=== PATIENT | male | born 1945 | race Two or more races ===

== ENCOUNTER 2017-11-20 10:28 | Inpatient (IN) | payer MEDICARE, OTHER ==
[~2017-11-20] VITALS: Ht 167.6 cm; Wt 84.1 kg
[2017-11-20] MEDS ORDERED: ACETAMINOPHEN 500 MG TAB PO ONE (10:45)
[2017-11-20 11:05] LABS: Basophils # (auto) 0.1 uL; Basophils % (auto) 0.9 % (0.0-2.0); Eosinophils # (auto) 0 uL; Eosinophils % (auto) 0.1 % (0.0-7.0); Hematocrit 28.3 % (41.0-53.0); Hemoglobin 9.6 g/dL (13.5-17.5); Lymphocytes # (auto) 0.2 uL; Lymphocytes % (auto) 3.7 % (10.0-50.0); Mean Corpuscular Hemoglobin 33.6 pg (28.0-32.0); Mean Corpuscular Hgb Conc. 33.9 g/dL (32.0-36.0); Mean Corpuscular Volume 99.2 fL (80.0-100.0); Mean Platelet Volume 10.6 fL (6.9-10.8); Monocytes # (auto) 0.8 uL; Monocytes % (auto) 12.6 % (0.0-12.0); Neutrophils % (auto) 82.7 % (37.0-80.0); Platelet Count (auto) 83 10^3/uL (140-450); Red Cell Distribution Width 15.7 % (11.8-14.3); White Blood Cell 6.1 10^3/uL (4.4-10.8)
[2017-11-20 11:22] LABS: Albumin 3.7 g/dL (3.4-5.0); BUN/Creatinine Ratio 3.9; Bilirubin, Total 0.7 mg/dL (0.2-1.0); Calcium 7.7 mg/dL (8.5-10.1); Potassium 4.1 mmol/L (3.5-5.1); Total Protein 8.1 g/dL (6.4-8.2)
[2017-11-20] MEDS ORDERED: SODIUM CHLORIDE 0.9% 1,000 ML IV ONE (13:12)
[2017-11-20 13:40] LABS: INR 0.98 (0.9-1.15); Partial Thromboplastin Time 36.2 sec (22.64-33.71); Prothrombin Time 10.7 sec (9.37-12.3)
[2017-11-20] MEDS ORDERED: AZITHROMYCIN 500MG/ 250ML 250 ML IV ONE ×2 (14:45→17:15)
[2017-11-20] MEDS ORDERED: cefTRIAXone 1GM/10ml IVPUSH 10 ML IV ONE ×2 (14:45→17:15)
[2017-11-20] MEDS ORDERED: MORPHINE SULFATE 4 MG/ML SYRG IV PRN ×2 (17:15)
[2017-11-20] MEDS ORDERED: ONDANSETRON HCL 4 MG/2 ML VIAL IV PRN (17:15)
[2017-11-20] MEDS ORDERED: NITROGLYCERIN 0.4 MG SL TAB SL PRN (17:15)
[2017-11-20] MEDS ORDERED: ACETAMINOPHEN 325 MG TAB PO PRN (17:15)
[2017-11-20] MEDS ORDERED: TEMAZEPAM 15 MG CAP PO PRN (17:15)
[2017-11-20] MEDS ORDERED: HYDROcodone-ACET 5/325MG TAB PO PRN (17:15)
[2017-11-20] MEDS ORDERED: DOCUSATE SOD 100 MG CAP PO PRN (17:15)
[2017-11-20] MEDS: ALBUTEROL SULF 2.5 MG/0.5ML(0.5%) NEB SOLN NEB SCH (18:00)
[2017-11-20] MEDS: IPRATROPIUM BROM 0.5 MG/2.5ML INH SOL NEB SCH (18:00)
[2017-11-20] MEDS ORDERED: NIFE90TA30 PO (18:32)
[2017-11-20] MEDS ORDERED: VALS320T15 PO (18:32)
[2017-11-20] MEDS ORDERED: FER325T PO (18:32)
[2017-11-20] MEDS ORDERED: GABA-497 PO (18:32)
[2017-11-20] MEDS ORDERED: METO25TA5 PO (18:32)
[2017-11-20] MEDS ORDERED: CINA30TA2 PO (18:32)
[2017-11-20] MEDS ORDERED: FERR1TAB17 PO (18:32)
[2017-11-20] MEDS ORDERED: MULT-647 PO (18:35)
[2017-11-20 20:00] VITALS: BP 152/65
[2017-11-20] MEDS: FAMOTIDINE 20 MG TAB PO SCH (20:44)
[2017-11-20] MEDS: METOPROLOL TARTRATE 25 MG TAB PO SCH (21:40)
[2017-11-20] MEDS: SODIUM CHLOR 0.9% PF (SALINE LOCK) 10ML VIAL IV SCH (21:41)
[2017-11-20] MEDS: FERRIC CITRATE 210 MG PO SCH (21:45)
[2017-11-20 22:29] VITALS: BP 152/65
[2017-11-21] MEDS: IPRATROPIUM BROM 0.5 MG/2.5ML INH SOL NEB SCH ×4 (00:10→19:34)
[2017-11-21] MEDS: ALBUTEROL SULF 2.5 MG/0.5ML(0.5%) NEB SOLN NEB SCH ×4 (00:10→19:33)
[2017-11-21 04:01] VITALS: BP 152/65
[2017-11-21 05:13] VITALS: BP 140/72
[2017-11-21] MEDS: SODIUM CHLOR 0.9% PF (SALINE LOCK) 10ML VIAL IV SCH ×3 (06:01→21:40)
[2017-11-21] MEDS: FERRIC CITRATE 210 MG PO SCH ×3 (06:01→21:40)
[2017-11-21 06:17] LABS: Hematocrit 26.8 % (41.0-53.0); Hemoglobin 9.1 g/dL (13.5-17.5); Mean Corpuscular Hemoglobin 33.8 pg (28.0-32.0); Mean Corpuscular Volume 99.5 fL (80.0-100.0); Mean Platelet Volume 10.6 fL (6.9-10.8); Platelet Count (auto) 65 10^3/uL (140-450); Red Cell Distribution Width 15.8 % (11.8-14.3); White Blood Cell 5.2 10^3/uL (4.4-10.8)
[2017-11-21 06:39] LABS: Albumin 3.2 g/dL (3.4-5.0); Calcium 8.2 mg/dL (8.5-10.1); Potassium 4.9 mmol/L (3.5-5.1)
[2017-11-21 06:41] LABS: BUN/Creatinine Ratio 4.7
[2017-11-21 06:44] LABS: Bilirubin, Total 0.5 mg/dL (0.2-1.0); Total Protein 7.3 g/dL (6.4-8.2)
[2017-11-21 06:51] LABS: Metamyelocytes % 0; Myelocytes % 0; Promyelocytes % 0; Reactive Lymphocytes 0
[2017-11-21 07:00] LABS: Platelet Estimate Decreased
[2017-11-21 08:35] VITALS: BP 173/75
[2017-11-21] MEDS: VALSARTAN 80 MG TAB PO SCH (09:31)
[2017-11-21] MEDS: cefTRIAXone 1GM/10ml IVPUSH 10 ML IV SCH (09:31)
[2017-11-21] MEDS: NIFEdipine ER 30 MG TAB PO SCH (09:32)
[2017-11-21] MEDS: METOPROLOL TARTRATE 25 MG TAB PO SCH ×2 (09:32→21:42)
[2017-11-21] MEDS: B-COMPLEX W/ C & FOLIC ACID(NEPHROVITE TAB) PO SCH (09:33)
[2017-11-21] MEDS: MULTIPLE VITAMIN TAB PO SCH (09:33)
[2017-11-21] MEDS ORDERED: CINACALCET 60 MG PO SCH (10:00)
[2017-11-21] MEDS: AZITHROMYCIN 500MG/ 250ML 250 ML IV SCH (10:04)
[2017-11-21] MEDS ORDERED: EPOETIN ALFA 10,000 UNIT/1 ML VIAL IV ONE (10:45)
[2017-11-21] MEDS ORDERED: SODIUM CHL 0.9% 1000 ML BAG XX ONE (10:45)
[2017-11-21] MEDS ORDERED: cloNIDine HCL 0.1 MG TAB PO PRN (12:45)
[2017-11-21] MEDS: CINACALCET HYDROCHLORIDE 30 MG TAB PO SCH ×2 (12:48→15:50)
[2017-11-21 14:58] VITALS: BP 145/76
[2017-11-21 16:49] VITALS: BP 128/90
[2017-11-21 21:46] VITALS: BP 129/69
[2017-11-22] MEDS: ALBUTEROL SULF 2.5 MG/0.5ML(0.5%) NEB SOLN NEB SCH ×4 (00:53→18:47)
[2017-11-22] MEDS: IPRATROPIUM BROM 0.5 MG/2.5ML INH SOL NEB SCH ×4 (00:54→18:47)
[2017-11-22 04:47] VITALS: BP 139/69
[2017-11-22] MEDS: SODIUM CHLOR 0.9% PF (SALINE LOCK) 10ML VIAL IV SCH ×3 (06:20→21:17)
[2017-11-22] MEDS: FERRIC CITRATE 210 MG PO SCH ×3 (06:21→21:18)
[2017-11-22 09:16] VITALS: BP 131/65
[2017-11-22] MEDS: NIFEdipine ER 30 MG TAB PO SCH (09:31)
[2017-11-22] MEDS: cefTRIAXone 1GM/10ml IVPUSH 10 ML IV SCH (09:31)
[2017-11-22] MEDS: B-COMPLEX W/ C & FOLIC ACID(NEPHROVITE TAB) PO SCH (09:32)
[2017-11-22] MEDS: VALSARTAN 80 MG TAB PO SCH (09:32)
[2017-11-22] MEDS: METOPROLOL TARTRATE 25 MG TAB PO SCH ×2 (09:32→21:17)
[2017-11-22] MEDS: MULTIPLE VITAMIN TAB PO SCH (09:32)
[2017-11-22] MEDS: CINACALCET HYDROCHLORIDE 30 MG TAB PO SCH (10:35)
[2017-11-22] MEDS: AZITHROMYCIN 500MG/ 250ML 250 ML IV SCH (10:35)
[2017-11-22] MEDS ORDERED: EPOETIN ALFA 10,000 UNIT/1 ML VIAL IV ONE (11:00)
[2017-11-22] MEDS ORDERED: SODIUM CHL 0.9% 1000 ML BAG XX ONE (11:00)
[2017-11-22 13:00] VITALS: BP 129/61
[2017-11-22 17:47] VITALS: BP 124/60
[2017-11-22] MEDS: FAMOTIDINE 20 MG TAB PO SCH (21:17)
[2017-11-22 22:00] VITALS: BP 122/64
[2017-11-23 04:29] VITALS: BP 141/65
[2017-11-23] MEDS: SODIUM CHLOR 0.9% PF (SALINE LOCK) 10ML VIAL IV SCH (05:38)
[2017-11-23] MEDS: FERRIC CITRATE 210 MG PO SCH (05:39)
[2017-11-23] MEDS: IPRATROPIUM BROM 0.5 MG/2.5ML INH SOL NEB SCH ×4 (06:36→12:12)
[2017-11-23] MEDS: ALBUTEROL SULF 2.5 MG/0.5ML(0.5%) NEB SOLN NEB SCH ×4 (06:36→12:12)
[2017-11-23 09:00] VITALS: BP 125/75
[2017-11-23] MEDS ORDERED: EPOETIN ALFA 10,000 UNIT/1 ML VIAL IV ONE (09:00)
[2017-11-23] MEDS ORDERED: SODIUM CHL 0.9% 1000 ML BAG XX ONE (09:00)
[2017-11-23 12:00] VITALS: BP 133/81
== END 2017-11-23 15:08 | disposition home or self-care (01) | DRG 871 ==
LOC: ER 10:28 → TELE 10:29 → TELE-CENTR 18:16
PROVIDERS: ADMIT Internal Medicine; ATTEND Family Medicine
PROC: 5A1D70Z Performance of Urinary Filtration, Intermittent, Less than 6 Hours Per Day (ICD-10-PCS; principal; 2017-11-21)
PROC: 5A09357 Assistance with Respiratory Ventilation, Less than 24 Consecutive Hours, Continuous Positive Airway Pressure (ICD-10-PCS; 2017-11-21)
PROC: 5A1D70Z Performance of Urinary Filtration, Intermittent, Less than 6 Hours Per Day (ICD-10-PCS; 2017-11-23)
DX: A41.9 Sepsis, unspecified organism (principal); J18.1 Lobar pneumonia, unspecified organism; I13.2 Hypertensive heart and chronic kidney disease with heart failure and with stage 5 chronic kidney disease, or end stage renal disease; D69.59 Other secondary thrombocytopenia; G62.9 Polyneuropathy, unspecified; E83.51 Hypocalcemia; I31.3 Pericardial effusion (noninflammatory); N18.6 End stage renal disease; I50.43 Acute on chronic combined systolic (congestive) and diastolic (congestive) heart failure; K76.6 Portal hypertension; J45.901 Unspecified asthma with (acute) exacerbation; R18.8 Other ascites; D17.9 Benign lipomatous neoplasm, unspecified; D63.1 Anemia in chronic kidney disease; E78.5 Hyperlipidemia, unspecified; K57.30 Diverticulosis of large intestine without perforation or abscess without bleeding; K74.60 Unspecified cirrhosis of liver; N28.1 Cyst of kidney, acquired; Z82.49 Family history of ischemic heart disease and other diseases of the circulatory system; Z99.2 Dependence on renal dialysis; Z87.891 Personal history of nicotine dependence; Z79.899 Other long term (current) drug therapy
CPT/HCPCS: 36415; 71010; 71020; 74176; 80053; 83605; 83735; 84484; 85007; 85025; 85027; 85610; 85730; 87040; 87070; 87081; 87205; 90935; 93005; 93306; 94640; 94660; 94761; 96365; 96366; 96375; J0885; J1642